=== PATIENT | female | born 1945 | race Caucasian/White ===

== ENCOUNTER → 2022-05-23 11:49 | Outpatient (CLI) | payer MEDICARE, OTHER, SELFPAY ==
[2022-05-23 13:45] LABS: COVID19 -Nasal RAPID Negative (Negative)
== END ==
PROVIDERS: PCP Family Medicine; Referring Provider Orthopaedic Surgery; Visit Provider Orthopaedic Surgery
DX: Z20.822 Contact with and (suspected) exposure to COVID-19 (principal)
CPT/HCPCS: 87635; C9803

== ENCOUNTER 2022-05-26 10:36 | Day surgery (SDC) | payer MEDICARE, OTHER, SELFPAY ==
[2022-05-21 12:08] VITALS: BMI 32.1
[2022-05-26] VITALS (13 sets, daily range): BP systolic 120–146; BP diastolic 62–84; PULSE 53–68; RESP 12–22; TEMP 36–37; O2SAT 92–98; BMI 32.1
--- NOTE | 2022-05-26 11:52 | PM.PREOP ---
Pre-operative Note COVID-19 COVID-19 status: Negative Result date/Date tested (Pos, Neg/Pending): 05/23/22 Interval Note History & Physical reviewed/Exam performed by Physician: Yes Changes to H&P: No
[2022-05-26] MEDS: LACTATED RINGERS 1,000 ML 42 ML IV ×2 (11:55→14:32)
--- NOTE | 2022-05-26 12:29 | SUR.PREOP ---
Block start time [1234] . Time out for safety done at bedside. Monitoring initiated and maintained throughout procedure. Oxygen and medications given per anesthesiologist instructions. Patient remained stable throughout procedure, no adverse reactions noted. Block end time [1246].
[2022-05-26] MEDS: CEFAZOLIN 2 GM/100 ML PREMIX 100 ML IV (12:58)
[2022-05-26] MEDS: SODIUM CHLORIDE IRRIG SOLUTION 3,000 ML, EPINEPHrine 1 MG IRR (13:25)
[2022-05-26] MEDS: BUPIVACAINE 0.5% W/ EPI (PF) 30 ML VIAL INJ (13:25)
--- NOTE | 2022-05-26 13:28 | SUR.OPER ---
Lateral on padded OR bed with melara bag positioner, head on pillow, gel axillary roll in place, bottom leg bent with gel pad under knee to foot, upper leg straight and supported with pillows. Operative arm secured in shoulder positioning suspension device. non-operative arm secured on padded arm board. Safety belt at hip, tape over blanket securing lower legs.
--- NOTE | 2022-05-26 14:24 | P.OP_ITS ---
Operative Date/Time/Diagnoses Date of procedure: 05/26/22 Time of procedure: 14:24 Pre-op diagnosis: Right shoulder rotator cuff tear Post-op diagnosis: same (Also right shoulder biceps tendon rupture) Procedure & Clinicians Procedure: 1. Right shoulder arthroscopic rotator cuff repair 2. Right shoulder arthroscopic major debridement of biceps stump, rotator cuff, subacromial bursa, and acromioplasty of type 3 acromion Same procedure as scheduled: Yes Indications: The patient is a 77-year-old woman with a right rotator cuff tear proven on a CT arthrogram. She has had excellent response to a subacromial corticosteroid injection but no response to therapy. She has requested rotator cuff repair after discussion the risks benefits and alternatives. Risks discussed included but were not limited to: Failure to improve, stiffness, infection, nerve damage, deep venous thrombosis, pulmonary embolism, stroke, myocardial infarction, permanent paralysis and . Surgeon: Km Nice Baler Operator: Char Hoyos Click Yes if Unassisted: No Anesthesia Type: General and Peripheral nerve block Operative Notes Findings: 1. Normal glenohumeral cartilage 2. Widespread fraying of the glenoid labrum, degenerative 3. Biceps tendon rupture with approximately 2 cm of biceps stump remaining in the joint. 4. Normal glenohumeral ligaments 5. Subscapularis with fibrillation and separation of the fibers but no loss of footprint coverage 6. 1 cm full-thickness tear of the supraspinatus with some fibers in the tear remaining 7. Intact infraspinatus 8. Unremarkable axillary pouch 9. Thinning of the rotator cuff from the bursal surface in the area corresponding to the tear evident from the articular side 10. Type 3 acromion with impingement lesion 11. Acromioclavicular joint not visualized due to lack of preoperative symptoms 12. Exam under anesthesia notable for full range of motion and no evidence for pathologic laxity. Closure Type: primary Specimen(s): none sent Prosthetic devices, grafts, tissues, transplants, or devices: One DePuy Mitek Healix advance BR 5.5 mm triple threaded anchor. Applied: implant(s) Estimated Blood Loss (mL): 10 Blood products transfused: none Procedure in detail: The patient was seen in the preoperative area where she identified her right shoulder as the operative site and this was marked with my initials. She underwent an interscalene block and was taken to the operating room and placed on the operating room table in a supine position. She underwent the induction with general anesthetic. An examination under anesthesia was performed with the result given above. She was then repositioned in the left lateral decubitus position with an axillary roll and padding for all pressure points. She was stabilized in this position using the melara bag and adhesive tape. Her deep brain stimulator was turned off using the appropriate external device. The right arm was prepared for the fingertips to the base the neck with ChloraPrep in the usual fashion and draped through sterile drapes. The arm was placed in 10 lb of balanced skin suspension. The subcutaneous landmarks were outlined on the skin with a marking pen. A posterior portal was created and the arthroscope inserted into the glenohumeral joint. An anterior portal was created in the rotator interval for instrumentation. A shaver was inserted and used to debride the fraying of the labrum, the biceps stump, some fraying of the rotator cuff. A marking suture was then placed percutaneously at the site of the tearing in th e supraspinatus tendon. The arthroscope was withdrawn and placed in the subacromial space through the posterior portal. The suture was identified and the cuff palpated with findings of an evident rotator cuff tear from the bursal surface as well. The remaining fibers in the cuff tear were excised to allow repair. The greater tuberosity was prepared to bleeding bone with a shaver and bur. The type 3 acromion was converted to a type 1 acromion using the cutting block technique due to the impingement lesion there. A bursectomy had also been performed for visualization. A working cannula was placed laterally. A superolateral portal was created for the anchor and an anchor was placed in the prepared greater tuberosity. The anchor awl was used to microfracture the greater tuberosity to allow bleeding for healing of the cuff. The sutures from the anchor were placed using a scorpion suture Passer in simple suture fashion and tied to complete the rotator cuff repair. The integrity of the repair was verified as being satisfactory from the posterior and the lateral views. At this point all arthroscopic equipment was removed. The wounds were closed with 4-0 Monocryl and Steri-Strips. Dressings of sterile 4x4s an ABD and adhesive dressing were applied. The patient's arm was placed in a sling and she was transferred to the recovery room in good condition having tolerated the p rocedure well. The services of a skilled distribution center assistant were necessary in this case to provide positioning of the arm and for visualization with the camera allowing the surgeon's hand to be free to tie knots in place anchors. The procedure could not have been completed in an expedient fashion without a skilled distribution center assistant available. Complications: none Post-operative Condition: stable Disposition: PACU Plan for aftercare: The patient will be discharged today. They will be on passive range of motion for 6 weeks at which point they will be advanced to active range of motion. They will remain in the sling for 6 weeks except for pendulum exercises and PT exercise for passive range of motion. A prescription has been called to the pharmacy for oxycodone for pain relief.
[2022-05-26] MEDS: ONDANSETRON 4 MG/2 ML INJ IV (14:30)
--- NOTE | 2022-05-26 14:41 | SUR.PHASEI ---
1433 SBAR handoff to Eirca FRANCIS in PACU. updated that stimulator has been re-started by the Anesth.
[2022-05-26] MEDS: METOCLOPRAMIDE 10 MG/2 ML INJ IV (15:03)
--- NOTE | 2022-05-26 15:46 | SUR.PHASEI ---
Patient took parkinson meds from home at 1520.
[2022-05-26] MEDS: ePHEDrine 50 MG/ML VIAL 25 MG IM (16:32)
--- NOTE | 2022-05-26 17:07 | SUR.PHASEII ---
Pt D\Cd at 1641. Charting not completed until now. Pt with stable vitals. Given DC instrcutions to montrell black . Concern expressed from me as RN to the patient and spouse that she needs assistance at home to stand up, move around, get up from commode, bed, chair, etc. is recovering from quadruple bypass and has a 5lb weight limit. They were able to ask a daughter to come assist this evening. Pt slightly nauseous still at discharge after IM Ephedrine. Voided. needs full assistance to ambulate, dress, etc. All ADLs will be affected by this surgery for a time. Denied pain at discharge. Pt was called as leaving on [address] that her PIV was not removed. I apologized and removed the IV once they returned.
== END 2022-05-26 16:51 | disposition home or self-care (01) ==
PROVIDERS: PCP Family Medicine; Referring Provider Orthopaedic Surgery; Visit Provider Orthopaedic Surgery
PROC: (CPT 29827; principal; 2022-05-26 12:15)
DX: M75.121 Complete rotator cuff tear or rupture of right shoulder, not specified as traumatic (principal); S46.211A Strain of muscle, fascia and tendon of other parts of biceps, right arm, initial encounter; G20 Parkinson's disease; I10 Essential (primary) hypertension; M25.811 Other specified joint disorders, right shoulder
CPT/HCPCS: 29827; 29826; 64450; J0171; J0690; J1100; J1885; J2250; J2405; J2704; J2765; J3010

== ENCOUNTER 2024-10-04 06:01 | Day surgery (SDC) | payer MEDICARE, OTHER, SELFPAY ==
[2024-09-12 10:40] VITALS: BMI 30.9
[2024-10-04] VITALS (17 sets, daily range): BP systolic 111–143; BP diastolic 32–73; PULSE 61–94; RESP 12–19; TEMP 36–37.1; O2SAT 71–97; BMI 31.4
--- NOTE | 2024-10-04 06:00 | DI.RAD.S_ITS ---
PROCEDURE: XR KNEE RT 1TO2V INDICATIONS: uni total rt knee TECHNIQUE: 2 view(s) of the knee acquired. COMPARISON: None. FINDINGS: Bones: Patient is status post medial unicompartment arthroplasty. Hardware components are in expected positions. Visualized bony structures are intact. Soft tissues: Overlying postoperative changes are noted. IMPRESSION: Expected postsurgical changes from right medial femoral tibial compartment arthroplasty. Anatomic right knee alignment. Dictated by: Jose Luis Gloria M.D. on 10/04/2024 at 10:34 Approved by: Jose Luis Gloria M.D. on 10/04/2024 at 10:34
[2024-10-04] MEDS: VANCOMYCIN 1,000 MG in SODIUM CHLORIDE 0.9% 250 ML 250 MG IV (06:51)
[2024-10-04] MEDS: CELECOXIB 200 MG CAPSULE 400 MG PO (07:01)
[2024-10-04] MEDS: ALBUTEROL/IPRATROPIUM 3 ML AMPUL INH (07:02)
[2024-10-04] MEDS: LACTATED RINGERS 1,000 ML 42 ML IV ×2 (07:02→08:59)
[2024-10-04] MEDS: ACETAMINOPHEN 325 MG TABLET 975 MG PO (07:02)
--- NOTE | 2024-10-04 07:40 | PM.PREOP ---
Pre-operative Note Interval Note History & Physical reviewed/Exam performed by Physician: Yes Changes to H&P: No
--- NOTE | 2024-10-04 07:41 | P.OP_ITS ---
Operative Date/Time/Diagnoses Date of procedure: 10/04/24 Time of procedure: 07:45 Pre-op diagnosis: Right knee medial compartment arthritis Post-op diagnosis: same Procedure & Clinicians Procedure: Right knee medial compartment arthroplasty Same procedure as scheduled: Yes Indications: The patient has had progressively worsening right knee pain with radiographic changes consistent with arthritis. Non-operative management has failed and the patient has requested medial unicompartment right knee replacement. The risks, benefits and alternatives to surgery were discussed with the patient prior to proceeding. Risks discussed included, but were not limited to, failure to relieve pain, stiffness, infection, nerve damage, deep venous thrombosis, pulmonary embolism, stroke, coma, heart attack, permanent paralysis and , as well as the potential need for eventual revision of the prosthetic. Surgeon: Allison Johnson Grade [employer] Teacher: Elena De Dios Anesthesia Type: General, Spinal and Peripheral nerve block Operative Notes Findings: Severe medial compartment OA, adequate stability, adequate bone Closure Type: primary Specimen(s): none sent Prosthetic devices, grafts, tissues, transplants, or devices: Journey medial Uni, size 6 femur, size 4 tibia, +8 poly Estimated Blood Loss (mL): 250 Blood products transfused: none Tourniquet time (min): 74 Procedure in detail: The patient was seen in the pre-operative area, where the right knee was identified as the operative site and this was marked with my initials. The patient received pre-operative antibiotics, and was taken to the operating room and placed on the operative table in the supine position. After satisfactory anesthesia, a realtime captioner out was performed. The right leg was encircled with a tourniquet about the proximal thigh, and the leg was prepared from the toes to the tourniquet with ChloroPrep in the usual fashion and draped through sterile drapes. The leg was elevated and exsanguinated with Eschmark bandage and the tourniquet inflated to [250] mmHg pressure. PA was used during the procedure and was essential for intraoperative retraction and safe implantation of the components. The knee was approached through an approximately 10 cm incision medial parapatella incision and carried into the knee through a medial parapatellar arthrotomy. The osteophytes and medial meniscus were removed. Next, pins were placed for Cori robotic navigation. A plan was taken and meticulously developed. The knee was carefully mapped. Full range of motion and adequate stability was confirmed. Cori robotic bur was used for the distal femoral resection. The tibia was then resected and the femur was carefully finished. Medial meniscus was removed. Marcaine and Exparel 266 mg was meticulously injected. Hemostasis was achieved with the Bovie cautery. Trial reduction was performed there was excellent tracking of the components and full range of motion. Trial reduction with the appropriate poly showed full range of motion and good stability at 0, 45. and 90? with normal tracking of the components without edge loading. The bone was meticulously irrigated and dried. Additional Marcaine was injected. The posterior capsule was injected with 0.25% Marcaine mixed with 20 ml Exparel for post-operative pain control. The remainder of this mixture was injected into the capsule and subcutaneous tissues during cement curing. Range of motion was [0-130], with good stability throughout the range. The trials were then remove. The cement was as applied and the final prosthetics placed. Excess cement was removed during and after cement curing. A brief medial compartment Betadine soak was performed. After confirming there was no extruded cement posteriorly, the final tibial insert was placed. The knee was copiously irrigated and the tourniquet deflated. Hemostasis was obtained. The capsule was closed with interrupted vicryl. The subcutaneous tissue was closed with barbed sutures. The skin with a running 3-0 V-Lock suture and surgical glue. An Aquacel Ag dressing was applied and the patient was taken to recovery having tolerated the procedure well. Complications: other Post-operative Condition: stable Disposition: Acute Care Plan for aftercare: The patient will be maintained on a standard total knee replacement protocol with weight bearing as tolerated. The patient will receive aspirin and sequential compression devices for DVT prophylaxis. The patient will be discharged home when safe for the home environment.
--- NOTE | 2024-10-04 07:41 | PM.PREOP ---
Pre-operative Note Interval Note History & Physical reviewed/Exam performed by Physician: Yes Changes to H&P: No
[2024-10-04] MEDS: CEFAZOLIN 2 GM/100 ML PREMIX 100 ML IV ×3 (08:05→22:28)
--- NOTE | 2024-10-04 08:13 | SUR.PREOP ---
Block start time 0744 with a time out. Monitoring initiated and maintained throughout procedure. Oxygen and medications given by anesthesia provider. Patient remained stable throughout procedure, no adverse reactions noted. Block end time 0745.
[2024-10-04] MEDS: BUPIVACAINE 0.25% W/ EPI 30 ML VIAL 45 ML INJ (08:35)
[2024-10-04] MEDS: BUPIVACAINE LIPOSOME 266 MG/20 ML VIAL INJ (08:36)
[2024-10-04] MEDS: ONDANSETRON 4 MG/2 ML INJ IV (10:18)
[2024-10-04] MEDS: LORazepam 2 MG/ML INJ 0.25 MG IV ×2 (10:32→10:40)
[2024-10-04] MEDS: CARBIDOPA-LEVODOPA 25/100 TABLET 1.5 EACH PO ×4 (11:25→22:27)
[2024-10-04] MEDS: LACTATED RINGERS 1,000 ML 100 ML IV ×2 (11:32→15:18)
--- NOTE | 2024-10-04 13:30 | OT.IP.EVAL ---
Current Diagnoses Unilateral primary osteoarthritis, right knee (10/04/24) Surgery Performed Operation Date: 10/04/24 07:45 Actual Procedures p Medial Unicompartmental Knee Arthroplasty-Robot(Right) - Allison Johnson MD Past Medical History (Last Updated 10/04/24 @ 07:09 by Ray Young, PENNY) Acid reflux Anxiety Back pain Dystonia Encounter for preoperative assessment Fall HTN (hypertension) Hypotension Hypothyroid VALENTINE on CPAP Parkinson disease (~2011) Shortness of breath Surgical History (Last Updated 09/08/24 @ 10:17 by Belinda Reynoso RN) History of unicondylar arthroplasty of left knee Hx of cholecystectomy (2013) Hx of repair of right rotator cuff (05/26/22) S/P deep brain stimulator placement (2017) Occupational Therapy Inpatient Evaluation/Re-Eval M1 PT/OT-IP Prior Functional Status Start: 10/04/24 13:55 Freq: NEEDED Status: Active Protocol: Document 10/04/24 13:55 [facility] (Rec: 10/04/24 14:09 [facility] [id number]) Medical Review Prior Functional Status Communication I Mobility and Gait Pt states uses a FWW at all times at home and just able to walk one block. Activities of Daily Living and IADL's Pt able to do ADL's and assisted with IADL and bills. Pt does not drive. Prior Functional Level (Other details) Pt states history of Parkinson 's for the past 13 years. Pt states fell in the tub/shower 2 weeks ago. Pt has right rotator injury and repair several years ago that did not heal properly. Social History Household Members spouse Living Arrangements Apartment/Condo Number of Floors (Floors) Two Floors Number of Stairs To Enter/Railing? 3 steps with left rail. Pt states she uses a step to get into her bed and car. Home Environment High Toilet,Walk in Shower,Tub /Shower,Built-In Shower Seat Home Equipment Front Wheel Walker,Bedside Commode,Web Support Engineer,Bed Rails,Grab Bars In Shower Additional Social History Comment Pt's to be home to assist. Pt states is set up for home health PT initially. M2 OT-IP Current Condition Start: 10/04/24 13:55 Freq: Status: Active Protocol: Document 10/04/24 13:55 [facility] (Rec: 10/04/24 14:09 [facility] [id number]) Occupational Therapy Current Condition Current Condition Evaluation Date 10/04/24 Treatment Diagnosis S/P Right medial uni knee M3 OT- IP Subjective and Pain Start: 10/04/24 13:55 Freq: Status: Active Protocol: Document 10/04/24 13:55 [facility] (Rec: 10/04/24 14:09 [facility] [id number]) OT- Subjective Occupational Therapy Visit Type Type Initial Evaluation Visit Start Time 13:06 Visit Stop Time 13:30 Occupational Therapy Visit Comments Patient Comments Pt wanting to use the BSC. Patient/Caregiver Goals TO go home. OT Pain Assessment Pain When Pain Assessed At Rest Pain Present Pain Present Denied Pain M4 OT- IP ADL's Start: 10/04/24 13:55 Freq: Status: Active Protocol: Document 10/04/24 13:55 [facility] (Rec: 10/04/24 14:09 [facility] [id number]) OT [id number] Comments OT Self-Feeding Comments Not at meal time. OT ADL-Grooming Comments OT Grooming Comments Pt refused. OT ADL-Oral Care Comments Oral Care Comments Pt refused at this time. OT ADL-Dressing General Eval Lower Body Dressing Ability Total Assistance Areas Needing Assistance Socks Comments OT Dressing Comments Educated to pt best to dress the RLE first and take out last. OT ADL-Toileting General Evaluation Toileting Ability Standby Assistance Comments OT Toileting Comments Educated pt to be mindful not to twist her right knee during ADL needs. Pt states uses a BSC at night. OT ADL-Bathing Comments OT Bathing Comments Not performed. When over care of bandage while showering. M5 OT- IP IADL's Start: 10/04/24 13:55 Freq: Status: Active Protocol: Document 10/04/24 13:55 [facility] (Rec: 10/04/24 14:09 [facility] [id number]) OT-Instrumental Activities of Daily Living Home Safety Awareness Awareness of Need for Assistance at Home Good Awareness Ability to Problem Solve Emergency Able to Problem Solve Situations Medication Management Medication Management Comments Best to have assist initially. Money Management Money Management Caregiver Provides Assistance Meal Preparation Meal Preparation Caregiver Provides Assist Rigging Worker Rigging Worker Caregiver Provides Assist Driving Driving Comments Pt does not drive. M6 OT- IP Functional Cognition Start: 10/04/24 13:55 Freq: Status: Active Protocol: Document 10/04/24 13:55 [facility] (Rec: 10/04/24 14:09 [facility] [id number]) Cognitive Factors Limiting Selfcare Function Cognitive Ability Level of Alertness Alert Patient Orientation Name,Place,Situation Attention Span Ability Capable of Focused Attention, Capable of Sustained Attention Ability to Follow Commands Able to Follow One Step Commands Safety Awareness Underestimates Need for Assistance Cognitive Comments Cognitive Assessment Comments Pt is a little impulsive and needing cues to slow down and have the FWW with her. OT- Vision and Hearing OT- Hearing Assessment OT- Hearing Assessment WFL OT- Vision Assessment Visual Acuity Glasses For Reading Visual Attentiveness WFL Occular Pursuits WFL M7 OT- IP Mobility and Balance Start: 10/04/24 13:55 Freq: Status: Active Protocol: Document 10/04/24 13:55 [facility] (Rec: 10/04/24 14:09 [facility] [id number]) OT-Transfer Assessment Sit to and From Stand Sit to and from Stand Contact Guard Assistance Transfers Transfer Ability Contact Guard Assistance Technique Transfer Destination Bedside Commode,Chair Transfer Technique Stand Step Pivot Devices Transfer Assistive Devices Gait Belt,Front Wheeled Walker Comments Mobility Comments CGA to stand to the FWW and transfer to the BSC and back. OT- Balance Assessment Sitting Balance and Reactions Static Sitting Balance Ability Good Dynamic Sitting Balance Ability Good Standing Balance and Reactions Static Standing Balance Ability Good Dynamic Standing Balance Ability Fair M8 OT- IP Objective Assessments Start: 10/04/24 13:55 Freq: Status: Active Protocol: Document 10/04/24 13:55 [facility] (Rec: 10/04/24 14:09 [facility] [id number]) OT Gross Range of Motion Upper Extremity Range of Motion Assessment Right Impaired OT Strength Upper Extremity Strength Assessment Right Impaired M9 OT- IP Assessment and Plan Start: 10/04/24 13:55 Freq: Status: Active Protocol: Document 10/04/24 13:55 [facility] (Rec: 10/04/24 14:09 [facility] [id number]) OT Summary Assessment and Plan Potential Rehabilitation Potential Good Analytic Complexity at Evaluation Low Summary OT Impairments Balance,Functional Mobility, Dressing,Toileting,Bathing, Toilet Transfers,Shower Transfers Progress Towards Goals Progressing Toward Goals Assessment Summary Pt low complexity and main barriers are steps and has a high bed and car to get into. Pt states her to assist her at home and state already has home health set up initially. Pt to go home when medically stable. Goals Self-Feeding Goal Independent Grooming Goal Independent Dressing Goal Independent,Web Support Engineer Toileting Goal Independent Bathing Goal Standby Assistance Toilet Transfer Goal Independent Shower Transfer Goal Standby Assistance Days to Meet Goals 3 Frequency of Treatment Frequency Of Treatment Once a Day Treatment Plan OT Treatment Plan ADL Training,Functional Mobility,Patient/Family Education,Discharge Planning Other Treatment Recommendations and Next Standing ADL's Treatment Focus Discharge Recommendations OT Discharge Recommendations Home with 24/7 Assist Available,Home Health Transportation Needs at Discharge Private Vehicle
--- NOTE | 2024-10-04 14:30 | PT.IIE ---
Current Diagnoses Unilateral primary osteoarthritis, right knee (10/04/24) Surgery Performed Operation Date: 10/04/24 07:45 Actual Procedures p Medial Unicompartmental Knee Arthroplasty-Robot(Right) - Allison Johnson MD Surgical History (Last Updated 09/08/24 @ 10:17 by Belinda Reynoso RN) History of unicondylar arthroplasty of left knee Hx of cholecystectomy (2013) Hx of repair of right rotator cuff (05/26/22) S/P deep brain stimulator placement (2017) Medical History (Last Updated 10/04/24 @ 07:09 by Ray Young RN) Acid reflux Anxiety Back pain Dystonia Encounter for preoperative assessment Fall HTN (hypertension) Hypotension Hypothyroid VALENTINE on CPAP Parkinson disease (~2011) Shortness of breath Physical Therapy Inpatient Evaluation/Re-Eval M1 PT/OT-IP Prior Functional Status Start: 10/04/24 17:31 Freq: NEEDED Status: Active Protocol: Document 10/04/24 14:30 AB (Rec: 10/04/24 17:43 AB [id number]) Medical Review Prior Functional Status Medical History Reviewed Yes Communication able to make needs known Mobility and Gait Pt states uses a FWW at all times at home and just able to walk one block. Activities of Daily Living and IADL's Pt able to do ADL's and assisted with IADL and bills. Pt does not drive. Prior Functional Level (Other details) Pt states history of Parkinson 's for the past 13 years. Pt states fell in the tub/showrer 2 weeks ago. Pt has right rotator injury and repair several years ago that did not heal properly. Social History Household Members spouse Living Arrangements Apartment/Condo Number of Floors (Floors) Two Floors Number of Stairs To Enter/Railing? 3 steps with left rail. pt plans to stay on main level of the house Home Environment High Toilet,Walk in Shower,Tub /Shower,Tub/Shower Doors,Built -In Shower Seat Home Equipment Front Wheel Walker,Bedside Commode,Financial Dealers,Bed Rails,Grab Bars In Shower Additional Social History Comment Pt's to be hime to assist. Pt states is set up for home health PT initially. pt stated that she uses a step stool to get in to the bed onto the side and brings knees up into the bed semi quadruped position to get into the bed. M2 PT-IP Current Condition Start: 10/04/24 17:31 Freq: NEEDED Status: Active Protocol: Document 10/04/24 14:30 AB (Rec: 10/04/24 17:43 AB [id number]) Physical Therapy Current Condition Current Condition Evaluation Date 10/04/24 Treatment Diagnosis s/p R uniknee; difficulty in walking Onset Date 10/04/24 M3 PT-IP Subjective Start: 10/04/24 17:31 Freq: NEEDED Status: Active Protocol: Document 10/04/24 14:30 AB (Rec: 10/04/24 17:43 AB [id number]) Subjective Physical Therapy Visit Type Type Initial Evaluation Visit Start Time 14:30 Visit Stop Time 15:15 Number of FUEL PILOT ENGINEER Visits 0 Physical Therapy Visit Comments Patient Comments agreeable to do PT Therapy Pain Assessment Pain Present Pain Present Denied Pain M4 PT-IP Mobility and Gait Start: 10/04/24 17:31 Freq: NEEDED Status: Active Protocol: Document 10/04/24 14:30 AB (Rec: 10/04/24 17:43 AB [id number]) PT-Bed Mobility Assessment Supine to Sit Supine to Sit Standby Assistance Sit to Supine Sit to Supine Standby Assistance PT-Transfer Assessment Sit to and From Stand Sit to and from Stand Contact Guard Assistance, Minimal Assistance,1 Person Assistance,Use of Upper Extremities Equipment Transfer Assistive Device Gait Belt,Front Wheeled Walker Orthotic/Prosthetic Devices or Brace: No Transfers Transfer Destination Toilet Transfer Technique ambulated Transfer Ability Level of Assist Minimal Assistance,1 Person Assistance,Use of Upper Extremities Comments Mobility Comments pt in bed and agreeable to do PT. obtained PLOF and home set up. BP: 126/63. pt completed supine to sit SBA. pt is impulsive. able to sit on EOB SBA. pt requesting to use the toilet. sit to stand min A and ambulated to the toilet using FWW min A and max cues for safety. min A for sit<> stand from the toilet using grab bars. pt ambulated to the bed using FWW min A. educated pt on safety, sit<> stand techniques and how to use FWW. sit to stand from EOB CGA and ambulated in room using FWW CGA to min A and cues. pt sat back on EOB. sit to supine SBA. positioned pt in bed. call light and table placed within reach. set up caregiver training tomorrow with spouse/daughter at 10 am. Gait Assessment Gait Gait Assistance Required: Minimum Assistance Distance (Feet) 40 Able to Maintain Weight Bearing Status Yes During Gait Assistive Devices Assistive Device Gait Belt,Front Wheeled Walker Orthotic/Prosthetic Devices or Brace: No Gait Deviations General Gait Pattern Antalgic,Decreased Stride Length,Decreased Feet Clearance Factors Limiting Gait Function Factors Limiting Gait Function Decreased Activity Tolerance, Decreased Strength,Difficulty Following Directions,Limited Range of Motion,Poor Balance, Poor Safety Awareness PT-Balance Assessment Sitting Balance and Reactions Static Sitting Balance Ability Normal Dynamic Sitting Balance Ability Good Standing Balance and Reactions Static Standing Balance Ability Fair Dynamic Standing Balance Ability Fair Device Used FWW M5 PT-IP Objective Assessments Start: 10/04/24 17:31 Freq: NEEDED Status: Active Protocol: Document 10/04/24 14:30 AB (Rec: 10/04/24 17:43 AB [id number]) Orientation Orientation/Cognition Level of Alertness Alert Orientation Name,Place,Situation Language Function Ability Hard of Hearing Safety Awareness Decreased Safety Awareness Memory Description Short Term Impaired Gross Range of Motion Lower Extremity ROM Assessment Within Functional Limits Strength Lower Extremity Strength Assessment Within Functional Limits Coordination Assessment Gross Coordination Gross Coordination WNL Sensation Assessment Sensation Gross Sensation WNL Muscle Tone Muscle Tone WNL Yes M6 PT-IP Treatment Start: 10/04/24 17:31 Freq: NEEDED Status: Active Protocol: Document 10/04/24 14:30 AB (Rec: 10/04/24 17:43 AB [id number]) Physical Therapy Treatment Education Education Provided Precautions,Weight Bearing Status,Post-Op Packet,Safety M7 PT-IP Assessment and Plan Start: 10/04/24 17:31 Freq: NEEDED Status: Active Protocol: Document 10/04/24 14:30 AB (Rec: 10/04/24 17:43 AB [id number]) PT Summary Assessment and Plan Potential Rehabilitation Potential Good Status of Condition at Evaluation Evolving Summary Impairments Pain,ROM,Strength,Balance, Coordination,Sensation,Tone, Cognition,Bed Mobility, Transfers,Gait,Activity Tolerance Assessment Summary pt is a 79 y/o F s/p R uni knee POD 0. pt is WBAT on RLE. pt requiring CGA to min A with mobility using FWW and is very impulsive. pt with dx Parkinson's dse affecting current mobility and safety awareness. pt plans to go home with spouse to assist. caregiver training set up at ~ 10 am tomorrow. will continue to assess progress. Goals Bed Mobility Goal Independent Transfer Goal Independent,Front Wheeled Walker Gait Goal Independent,Front Wheel Walker Gait Distance 200 Other Goals up/down 3 steps L rail ascending SBA Days to Meet Goals 5 Frequency of Treatment Frequency Of Treatment Twice a Day Treatment Plan Physical Therapy Treatment Plan Bed Mobility Training,Transfer Training,Gait Training, Therapeutic Exercise,Balance Retraining,Post Op Education, Discharge Planning,Hot or Cold Pack,Neuromuscular Re-ed, Coordination Retraining,Manual Therapy Weight Bearing Status Weight Bearing Status Weight Bear as Tolerated Allowed Weight Bearing Amount (enter % RLE WBAT or #) (%) Recommendations To Nursing Amount of Assist Needed 1 Person Assist Discharge Recommendations PT Discharge Recommendations Home with 16/02 Assist Available,Outpatient PT Transportation Needs at Discharge Private Vehicle,Wheelchair/ Cabulance - PT assist 1PA
[2024-10-04] MEDS: PRAMIPEXOLE 0.25 MG TABLET 1 MG PO ×2 (15:17→19:49)
[2024-10-04] MEDS: ACETAMINOPHEN 325 MG TABLET 650 MG PO ×2 (15:18→22:30)
[2024-10-04] MEDS: LORazepam 0.5 MG TABLET PO (17:27)
--- NOTE | 2024-10-04 18:03 | PC.ADMIT ---
Admission Note: Patient arrived to room 225 from PACU at 1055. Alert and oriented x3, on 2L NC with SpO2 mid-90s, weaned oxygen to off, 94% on RA. RT set up pt's own CPAP for the night. Pt denies pain. SOFIYA wrap over aquacel and gauze dressings, C/D/I, ice machine in place. Strong bilateral pedal pulses, decreased sensation to BLEs on arrival, full sensation by this afternoon. Able to move BLEs without issue. Up 1 person assist with FWW, pt needing frequent cues to slow down and stay with FWW but is steady on feet. Reviewed home meds with patient and ensured orders were correct. Pt reports mostly taking 1 tab of sinemet, sometimes 1.5 mg if I need, has been receiving 1 mg at a time this shift. Pt voiding without issue. Oriented to bed/tv/call light controls, call light within reach, using appropriately to make needs known. Home meds sent to pharmacy for storage. Own walker, CPAP, shoes, clothing, and DBS medtronic control. Bed alarm on for safety. The patient,Lindsay Paiz,79 y/o, was given written information regarding hospital policies, unit procedures and contact persons. Patient's smoking status: Former smoker. Vital Signs - 8 hr 10/04/24 10:04 10/04/24 10:09 10/04/24 10:15 Temperature Pulse Rate 64 61 70 Respiratory Rate 15 15 15 Blood Pressure 119/60 118/70 120/50 L Pulse Oximetry 96 95 94 Oxygen Delivery Method Nasal Cannula Nasal Cannula Nasal Cannula Oxygen Flow Rate 4 4 4 10/04/24 10:20 10/04/24 10:25 10/04/24 10:30 Temperature Pulse Rate 94 H 69 68 Respiratory Rate 16 19 18 Blood Pressure 125/73 128/66 124/62 Pulse Oximetry 71 L 94 94 Oxygen Delivery Method Nasal Cannula Nasal Cannula Nasal Cannula Oxygen Flow Rate 4 4 2 10/04/24 10:36 10/04/24 10:40 10/04/24 10:50 Temperature 97.0 F L Pulse Rate 71 68 68 Respiratory Rate 12 17 14 Blood Pressure 112/62 122/58 L 133/32 L Pulse Oximetry 93 93 94 Oxygen Delivery Method Nasal Cannula Nasal Cannula Nasal Cannula Oxygen Flow Rate 2 2 2 10/04/24 10:52 10/04/24 12:07 10/04/24 12:49 Temperature 96.8 F L Pulse Rate 74 69 Respiratory Rate 14 14 Blood Pressure 119/58 L 119/55 L Pulse Oximetry 95 93 Oxygen Delivery Method Room Air Oxygen Flow Rate 0 10/04/24 12:50 10/04/24 13:30 10/04/24 16:26 Temperature 97.0 F L Pulse Rate 74 77 Respiratory Rate 15 18 Blood Pressure 121/71 119/66 126/66 Pulse Oximetry 97 93 Oxygen Delivery Method Oxygen Flow Rate 0 0
[2024-10-04] MEDS: IBUPROFEN 400 MG TABLET PO (19:49)
[2024-10-04] MEDS: ASPIRIN EC 81 MG TABLET PO (22:27)
[2024-10-05] VITALS: BP 144/66; PULSE 81; RESP 18; TEMP 36.1; O2SAT 92
[2024-10-05] MEDS: IBUPROFEN 400 MG TABLET PO ×2 (00:59→09:06)
[2024-10-05 04:00] VITALS: BP 136/61; PULSE 66; RESP 18; TEMP 35.8; O2SAT 95
[2024-10-05] MEDS: CARBIDOPA-LEVODOPA 25/100 TABLET 1.5 EACH PO ×3 (04:01→10:56)
[2024-10-05] MEDS: ACETAMINOPHEN 325 MG TABLET 650 MG PO ×2 (04:02→08:08)
[2024-10-05 05:05] LABS: Hematocrit 36.5 % (36-46); Hemoglobin 12.1 g/dL (12.0-16.0)
[2024-10-05] MEDS: PANTOPRAZOLE DR 20 MG TABLET PO (06:44)
[2024-10-05] MEDS: LEVOTHYROXINE 100 MCG TABLET PO (06:45)
--- NOTE | 2024-10-05 07:43 | PM.DS.1 ---
History of Present Illness History of Present Illness Date Patient Seen: 10/05/24 Time Patient Seen: 07:15 Chief complaint: Right Unicompartment Knee Arthroplasty - Robot Narrative: The patient has had progressively worsening right knee pain with radiographic changes consistent with arthritis. Non-operative management has failed and the patient has requested medial unicompartment right knee replacement. The risks, benefits and alternatives to surgery were discussed with the patient prior to proceeding. Risks discussed included, but were not limited to, failure to relieve pain, stiffness, infection, nerve damage, deep venous thrombosis, pulmonary embolism, stroke, coma, heart attack, permanent paralysis and , as well as the potential need for eventual revision of the prosthetic. Discharge Providers Provider Discharge Date: 10/05/24 Primary care physician: Tania Tapia MD Consults: 10/04/24 06:00 Consult to Anesthesiology Routine Comment: Consulting Provider: Anesthesiologist Reason for consultation: Regional block for post operative pain control Has provider been notified: No 10/04/24 10:52 Consult to Discharge Planning Routine Comment: Consult to Occupational Therapy Evaluate & Treat Comment: Physician Instructions: Evaluate and treat Consult to Physical Therapy Evaluate & Treat Comment: Physician Instructions: postop TKA protocol Discharge provider: Alin Chapa PA-C Summary Hospital Course Discharge Diagnosis: Right knee medial compartment arthritis Hospital Course: Procedure: Right knee medial compartment arthroplasty Same procedure as scheduled: Yes Surgeon: Allison Johnson Traffic Control Officer: Elena De Dios Anesthesia Type: General, Spinal and Peripheral nerve block Operative Notes Findings: Severe medial compartment OA, adequate stability, adequate bone Closure Type: primary Specimen(s): none sent Prosthetic devices, grafts, tissues, transplants, or devices: Journey medial Uni, size 6 femur, size 4 tibia, +8 poly Estimated Blood Loss (mL): 250 Blood products transfused: none Tourniquet time (min): 74 Status at Discharge Cognitive/behavioral status at discharge: oriented Functional status at discharge: uses cane/walker Overall status at discharge: patient is back to baseline Time Spent with Patient Time spent: Less than 30 minutes Exam Vital Signs (past 8 hours): - 10/05/24 00:00 10/05/24 04:00 Temperature 97.0 F L 96.5 F L Pulse Rate 81 66 Respiratory Rate 18 18 Blood Pressure 144/66 H 136/61 Pulse Oximetry 92 95 Oxygen Flow Rate 0 0 Oxygen Delivery Method Room Air,CPAP Oxygen Flow Rate 0 Narrative Exam Narrative: Patient's pain is controlled with oral medication. ?Pain is localized to surgical site. ?Patient declines any new numbness or tingling at the surgical extremity. ?Patient denies any shortness of breath, dizziness, light-headedness, fever or chills. Patient had episodes of nausea and vomiting upon arriving to her room. Controlled with oral medications throughout the evening. 5/5 strength in hip flexors, quadriceps, hamstrings, DF, PF, EHL bilaterally. Sensation to light touch intact throughout BLE. Calves soft, compressible, nontender. Dressing placed intraoperatively CDI. SCDs on and functioning Resp Effort & Inspection: normal respiratory effort and able to speak in complete sentences Objective Labs 10/05/24 04:12 Labs: Laboratory Results - last 24 hr 10/05/24 04:12 Hgb 12.1 Hct 36.5 PFSH Medical History (Updated 10/04/24 @ 07:09 by Ray Young RN) Fall Dystonia Encounter for preoperative assessment Shortness of breath Back pain HTN (hypertension) Acid reflux Hypothyroid Anxiety Hypotension Parkinson disease (~2011) VALENTINE on CPAP Surgical History (Updated 09/08/24 @ 10:17 by Belinda Reynoso RN) Hx of repair of right rotator cuff (05/26/22) History of unicondylar arthroplasty of left knee Hx of cholecystectomy (2013) S/P deep brain stimulator placement (2017) Social History household members: spouse Smoking Status: Former smoker alcohol intake: never Discharge Assessment & Plan Assessment and Plan Assessment: Status post Right knee medial compartment arthroplasty Plan of Treatment: Discharge to home. ? Ambulate and weight bear as tolerated with assistive devices. ? Aspirin 81 mg twice a day for 6 weeks for DVT prevention. ? Baseline pain relief with acetaminophen 500mg every 4 hours as needed and ibuprofen 400 mg every 4 hours as needed. ?Patient has been prescribed oxycodone 5 mg every 4 ?hours as needed for breakthrough pain. ? Initiate physical therapy in the next 5-10 days. ? Keep dressing clean and dry. Keep dressing on until first office visit. If dressing becomes dirty or disrupted, replace with appropriate sized dressing. Follow up in clinic in 2 weeks for wound check. Contact clinic if there are any questions or concerns. Discharge Plan Discharge Plan Patient Disposition: Home Discharge orders & Medications Discharge Orders: Discharge (Order); Ordered 10/05/24 Ordered By: Alin Chapa Prescriptions: New ibuprofen 400 mg Tablet 400 mg PO Q4H PRN (Reason: Pain, Mild (1-3)) Qty: 120 0RF aspirin 81 mg Tablet,Delayed Release (Dr/Ec) 81 mg PO BID Qty: 90 0RF Continued amlodipine 10 MG tablet 10 mg PO QDAY Qty: 0 atenolol 25 MG tablet 25 mg PO QDAY Qty: 0 pramipexole 0.5 mg Tablet 1 mg PO TID levothyroxine 100 mcg Tablet 100 mcg PO DAILY lorazepam 0.5 mg Tablet 0.5 mg PO QPM carbidopa-levodopa 25-100 mg tablet 1.5 tab PO Q4H omeprazole 20 mg capsule,delayed release(DR/EC) 20 mg PO QAM albuterol sulfate 90 mcg/actuation HFA aerosol inhaler 2 puff inhalation Q4-6H PRN (Reason: SOB.) albuterol sulfate 1.25 mg/3 mL solution for nebulization 1.25 mg inhalation Q4-6H PRN (Reason: SOB.) duloxetine 20 mg capsule,delayed release(DR/EC) 20 mg PO DAILY simethicone [Gas Relief (simethicone)] 80 mg tablet,chewable 80 mg PO BID-QID PRN (Reason: Gastrointestinal Spasms Or Cramping) Follow up/Referrals: Tania Tapia MD [Primary Care Provider] - Diet/Activity/Treatments Diet: Diet as Tolerated Activity: Ambulate multiple times a day. Use a cane or walker as needed. Full weight on leg. Cold/Heat Therapy: Use ice multiple times a day. Skin/Wound/Dressing Care Report to your healthcare provider any signs of infection, such as:: chills, fever, night sweats, unusual drainage and unusual redness Dressing: May shower. Leave dressing in place until follow up in office. No bathing or otherwise soaking incision. Call the office if the dressing becomes saturated inside. Visit Report/Discharge Packet Instructions: DI for Knee Replacement Stand Alone Forms: Patient Portal/API, Surgery Discharge Discharge Data Primary Care Provider: Tania Tapia Attending Provider: Allison Johnson VTE Deep Vein Thrombosis/Pulmonary Embolism Present on Admission: No
[2024-10-05 08:05] VITALS: BP 129/64; PULSE 67; RESP 16; TEMP 36.4; O2SAT 94
[2024-10-05] MEDS: DULOXETINE 20 MG CAPSULE PO (08:07)
[2024-10-05] MEDS: AMLODIPINE 5 MG TABLET 10 MG PO (08:07)
[2024-10-05] MEDS: ASPIRIN EC 81 MG TABLET PO (08:07)
[2024-10-05] MEDS: PRAMIPEXOLE 0.25 MG TABLET 1 MG PO (08:07)
[2024-10-05] MEDS: atenoloL 25 MG TABLET PO (08:07)
--- NOTE | 2024-10-05 10:05 | PT.IPTN ---
Current Diagnoses Unilateral primary osteoarthritis, right knee (10/04/24) Surgery Performed Operation Date: 10/04/24 07:45 Actual Procedures p Medial Unicompartmental Knee Arthroplasty-Robot(Right) - Allison Johnson MD Physical Therapy Treatment Note M2 PT-IP Current Condition Start: 10/04/24 17:31 Freq: NEEDED Status: Discharge Protocol: Document 10/04/24 14:30 AB (Rec: 10/04/24 17:43 AB [id number]) Physical Therapy Current Condition Current Condition Evaluation Date 10/04/24 Treatment Diagnosis s/p R uniknee; difficulty in walking Onset Date 10/04/24 M3 PT-IP Subjective Start: 10/04/24 17:31 Freq: NEEDED Status: Discharge Protocol: Document 10/05/24 10:05 AB (Rec: 10/05/24 14:47 AB [id number]) Subjective Physical Therapy Visit Type Type Treatment Note Visit Start Time 10:05 Visit Stop Time 10:45 Number of RESUME WRITER Visits 0 Physical Therapy Visit Comments Patient Comments agreeable to do PT M4 PT-IP Mobility and Gait Start: 10/04/24 17:31 Freq: NEEDED Status: Discharge Protocol: Document 10/05/24 10:05 AB (Rec: 10/05/24 14:47 AB [id number]) PT-Bed Mobility Assessment Supine to Sit Supine to Sit Standby Assistance Sit to Supine Sit to Supine Standby Assistance PT-Transfer Assessment Sit to and From Stand Sit to and from Stand Contact Guard Assistance,1 Person Assistance,Use of Upper Extremities Equipment Transfer Assistive Device Gait Belt,Front Wheeled Walker Orthotic/Prosthetic Devices or Brace: No Transfers Transfer Destination Bed Transfer Technique ambulated Transfer Ability Level of Assist Contact Guard Assistance,1 Person Assistance,Use of Upper Extremities Comments Mobility Comments pt sitting on the chair. spouse and daughter in room. caregiver training conducted. educated spouse on how to use safety belt and how to assist pt and cue pt. spouse was able to put safety belt on pt. spouse was able to assist pt with sit to stand CGA and ambulated pt toEOB using fWW CGA. occasionally instructions provided by PT. pt completed sit<>supine SBA. sit to stand from EOB CGA and ambulation in the hallway using FWW CGA ~ 75 ft with spouse assisting. stair climbing training: educated pt and spouse on how to do stairs. pt is impulsive . pt completed up/down steps holding on to L rail with B hands CGA. spouse was able to assist pt. pt assisted back to the room. sit to stand from w/c CGA and ambulated to the chair using fWW CGA. positioned pt on the chair. call light and table placed within reach. nurse aware that pt is waiting for d /c. Left pt with family in room. pt and spouse without further concerns. Gait Assessment Gait Gait Assistance Required: Contact Guard Assist Distance (Feet) 75 Able to Maintain Weight Bearing Status Yes During Gait Assistive Devices Assistive Device Gait Belt,Front Wheeled Walker Orthotic/Prosthetic Devices or Brace: No Gait Deviations General Gait Pattern Antalgic,Ataxic,Decreased Stride Length,Decreased Feet Clearance Factors Limiting Gait Function Factors Limiting Gait Function Decreased Activity Tolerance, Decreased Strength,Difficulty Following Directions,Limited Range of Motion,Pain,Poor Balance,Poor Safety Awareness Stair Climbing Assessment Evaluation Level of Assist On Stairs Contact Guard Assistance Devices Stair Climbing Assistive Devices Left Railing Technique/Endurance Stair Climbing Direction Ascend and Descend Stair Climbing Technique Step to Step Number of Steps Climbed 3 Stair Climbing Set # Repetitions (reps) 1 M5 PT-IP Objective Assessments Start: 10/04/24 17:31 Freq: NEEDED Status: Discharge Protocol: Document 10/04/24 14:30 AB (Rec: 10/04/24 17:43 AB [id number]) Orientation Orientation/Cognition Level of Alertness Alert Orientation Name,Place,Situation Language Function Ability Hard of Hearing Safety Awareness Decreased Safety Awareness Memory Description Short Term Impaired Gross Range of Motion Lower Extremity ROM Assessment Within Functional Limits Strength Lower Extremity Strength Assessment Within Functional Limits Coordination Assessment Gross Coordination Gross Coordination WNL Sensation Assessment Sensation Gross Sensation WNL Muscle Tone Muscle Tone WNL Yes M6 PT-IP Treatment Start: 10/04/24 17:31 Freq: NEEDED Status: Discharge Protocol: Document 10/05/24 10:05 AB (Rec: 10/05/24 14:47 AB [id number]) Physical Therapy Treatment Education Education Provided Safety M7 PT-IP Assessment and Plan Start: 10/04/24 17:31 Freq: NEEDED Status: Discharge Protocol: Document 10/05/24 10:05 AB (Rec: 10/05/24 14:47 AB [id number]) PT Summary Assessment and Plan Potential Rehabilitation Potential Fair Summary Impairments Pain,ROM,Strength,Balance, Coordination,Sensation,Tone, Cognition,Bed Mobility, Transfers,Gait,Activity Tolerance Progress Towards Goals Progressing Toward Goals Assessment Summary caregiver training conducted and spouse was able to assist pt with mobility. pt may go home when medicallys table. Goals Bed Mobility Goal Independent Transfer Goal Independent,Front Wheeled Walker Gait Goal Independent,Front Wheel Walker Gait Distance 200 Other Goals up/down 3 steps L rail ascending SBA Days to Meet Goals 5 Frequency of Treatment Frequency Of Treatment Twice a Day Treatment Plan Physical Therapy Treatment Plan Bed Mobility Training,Transfer Training,Gait Training, Therapeutic Exercise,Balance Retraining,Post Op Education, Discharge Planning,Hot or Cold Pack,Neuromuscular Re-ed, Coordination Retraining,Manual Therapy Weight Bearing Status Weight Bearing Status Weight Bear as Tolerated Allowed Weight Bearing Amount (enter % RLE WBAT or #) (%) Recommendations To Nursing Amount of Assist Needed 1 Person Assist Discharge Recommendations PT Discharge Recommendations Home with 16/02 Assist Available,Outpatient PT Transportation Needs at Discharge Private Vehicle,Wheelchair/ Cabulance - PT assist 1PA
--- NOTE | 2024-10-05 11:32 | PC.NURSE ---
Discharge Note Patient discharged to home at 1125 with spouse and daughter. Escorted to hospital exit via wheelchair by staff member. Written and verbal d/c instructions given on pain control and knee replacement and follow-up. Pt acknowledged understanding. All belongings with pt including own FWW, CPAP machine, DBS machine, shoes, and clothing. Home meds given to pt from pharmacy.
--- NOTE | 2024-10-05 14:43 | CM.DANOTE ---
Initial DCP Assessment Visit Note Reviewed EMR and team rounds for status updates. [facility] with pt, however she and her spouse were working with PT at the time of this visit. Pt lives modified independently with a walker in their own home in [place]. Her spouse was available to transport her home earlier this afternoon. She denied any CM d/c needs or assistance at this time. Home Health was setup prior to her having had surgery. Payor: Medicare Attending: Dr. Allison Johnson Pt is a 79 year-old F post-op day 1 from a R-total knee arthroplasty surgery. She has a PMH of Parkinson's disease, is well managed by PCP. Pt has a hx of worsening R-knee pain, imaging confirmed [id number]-ckow. She had no postoperative complications, and has a plan for her spouse to take of her post-d/c for home recovery needs. She does have her post-op Ortho appt. already scheduled for f/u. No further CM needs are indicated at this time. Discharge Planning/Care Management Advanced directive, confirm from FAMILY Start: 10/04/24 11:51 Freq: Q24H Status: Discharge Protocol: Document 10/04/24 12:07 RUFUS (Rec: 10/04/24 12:07 RUFUS [id number]) Advance Directive, confirm on record Time 12:07 Person contacted daughter and Copy received No CM Discharge Assessment Start: 10/05/24 14:33 Freq: Status: Active Protocol: Document 10/05/24 14:34 DPL (Rec: 10/05/24 14:43 DPL [id number]) Discharge Planning Assessment Assigned Horse Rider GUILLERMO Arguello Advance Directives? Yes Advance Directives on File No History Provided By Patient,Medical Record Has Patient been admitted in last 30 No days? Prior Living Arrangements Apartment/Condo Household Members spouse Type of transporation used prior to Relies on Others admit Independent with ADL's No: modified assist with a walker Is patient alert and oriented? Yes Caregiver for Another No DME Already Rented / Owned Bath Bench,Elevated Toilet Seat,FWW / Walker,Bedside Commode Patient/Family Preference Home with Home Health Discharge Plan Home Community Services Physical Therapy Transportation Arrangement Spouse Referrals Initiated None needed If patient plan is home with home health No : Has signed face to face form been completed? SNF/HH Preference Pt arranged for HH prior to her surgery. Review Status In Process Please Provide Date Initial DC 10/05/24 Assessment Was Performed Pre-Anesthesia Assessment Start: 09/08/24 09:11 Freq: Status: Complete Protocol: Document 09/12/24 10:40 CAB (Rec: 09/08/24 10:22 LB [id number]) Pre-Anesthesia Assessment PAC Comment 09/08/24 Phone assessment. Pt will bring remote for DBS. Pt will bring carbidopa- levodopa. Preferred Name [facility] Patient Information Reviewed Via Phone Assessment Assessment Completed With Patient Diagnostic Results BMP/CMP,CBC,EKG,PT/INR, Urinalysis Comment 07/11/24 Outside results. Primary Care Provider Tania Tapia Seen Specialist in Last 12 Months Yes Specialist Seen Orthopedist,Geospatial Applications Developer Comment Pulmonary visit @ 09/06/24 in surgery folder Primary Language Ghanaian Preferred Language Ghanaian Customer Manager Required No Height 162.56 cm Weight 81.647 kg Body Mass Index (BMI) 30.9 Hearing Ability Normal Visual Impairment No Limitations Dentition Type Teeth, Natural Present Hx Anesthesia Reactions Yes: PONV. Hx Family Anesthesia Reaction No Hx Malignant Hyperthermia No Hx Blood Transfusions No Anesthesia Review Requested No: Previous anesthesia review in surgery folder for DOS. Supervisor Cemetery Workers No alcohol intake never Smoking Status Former smoker how long ago did patient quit smoking Quit . Substance Use Type [#R] does not use Pain Present Denied Pain Musculoskeletal Symptoms Difficulty Walking Patient is completely paralyzed or No completely immobile Prosthesis or Orthotic Device Front Wheel Walker Mental Status Oriented to own ability Comment Will bring walker. Is patient on oxygen? No Does patient have REED/SOB Yes: With exercise and ascending stairs. Hx Sleep Apnea Yes CPAP/BIPAP use prescribed and used routinely Will Bring CPAP/BIPAP DOS Yes Comment Pulmonary visit, PFT scanned and in surgery folder Currently Taking a Beta Keenan Yes: Atenolol 25mg daily. Can You Climb a Flight of Stairs Without No: Takes ~3 min to recover. SOB Hx Chest Pain No Hx SOB Yes Hx Syncope or Dizziness No Anti-Coagulant Therapy No Cardiac Testing Yes: Echo 01/01/24. Hx Pacemaker/ICD No Comment Echo scanned and in surgery folder Dysphagia Yes Gastrointestinal Symptoms Dysphagia,Reflux Comment Occasional trouble swallowing. Urinary Catheter Present No Hx Urinary Self Catheterization No Diabetes No HgbA1C 5.7 Date 08/24/24 Comment A1c 5.7 08/24/24 Patient No Lactating No Hx Drug Resistant Organism No Presence of External or Internal Medical Yes: DBS, left knee. Devices Have you had any close contact with No someone diagnosed with COVID-19? Are you experiencing any of these No symptoms symptoms? Received a COVID vaccine? Yes Comment Denies covid last 8 weeks. Marital Status Lives With spouse Current Living Arrangements Apartment/Condo Number of Floors (Floors) Two Floors Number of Stairs To Enter/Railing? Main floor living. Support System Spouse Does the Patient Have Assistance After Yes Surgery Patient Discharge Plan Description Return Home Additional comment Advised inpatient stay. Feels Safe in Current Environment Yes Do You Have Any Spiritual Beliefs That No May Affect Your HC Choices? Do You Have Any Cultural Practices That No May Affect Your HC Choices? Emergency Contact Name Rafael Paiz - Emergency Contact Advance Directives? Yes Advance Directives on File No Requested Patient Bring Advanced Yes Directives DOS PAC Instructions Bring CPAP/BIPAP,Do not shave/ clip surgical site,Durable medical equipment,Medications to take/avoid,No ETOH/ petroleum product on skin DOS, NPO,Post-op transportation,Pre -surgical wash,Sensory aids, Sturdy shoes/comfortable clothes,Do not bring valuables and remove jewelry
== END 2024-10-05 11:25 | disposition home or self-care (01) ==
LOC: OR 06:03 → AC 09:23
PROVIDERS: PCP Family Medicine; Referring Provider Orthopaedic Surgery; Visit Provider Orthopaedic Surgery
PROC: (CPT 27446; principal; 2024-10-04 07:45)
DX: M17.11 Unilateral primary osteoarthritis, right knee (principal); G89.18 Other acute postprocedural pain; M25.761 Osteophyte, right knee
CPT/HCPCS: 27446; 36415; 64450; 73560; 85014; 85018; 97162; 97165; 97530; 97535; C1776; C1713; J0666; J0690; J1100; J1885; J2060; J2405; J2704